=== PATIENT | female | born 1940 | race Caucasian/White ===

== ENCOUNTER 2024-04-13 15:15 | Emergency (ER) | payer OTHER, SELFPAY ==
[2024-04-13 15:47] VITALS: BP 209/88
--- NOTE | 2024-04-13 15:52 | ED.GENMED ---
ED Provider Triage
<Santana Sarmiento PA-C - Last Filed: 04/13/24 15:53>
-
Patient seen by provider in Triage?: Seen in Triage
Attestation: A medical screening examination has been initiated by a qualified medical provider. Based on the assessment performed at this time, it has been determined that an emergent medical condition may exist and the patient has been informed
that further medical evaluation and possible additional diagnostic testing may be needed.
HPI: 83-year-old female with history of Parkinson's presents after a mechanical fall at the gym. Struck her face on the ground, no LOC. Not on blood thinners
GENERAL: Alert , in no apparent distress
EYE: No visual abnormalities.
ENT: Diffuse swelling to the nasal bridge, laceration to the upper lip
NECK: Trachea midline
ENT: No visible abnormalities.
LUNGS: No acute respiratory distress
NEUROLOGICAL: Alert and oriented
SKIN: Skin intact. No visible changes.
MUSCULOSKELETAL: Moving extremities normally
PSYCH: Normal and appropriate interaction.
This is a medical evaluation conducted in person to initiate diagnostic evaluation and provide initial therapeutics. Please see further documentation by the treating clinician.
History of Present Illness
<Snatana Sarmiento PA-C - Last Filed: 04/13/24 15:53>
General
Chief Complaint: Fall
Time Seen by Provider: 04/13/24 17:37
<Hernan Morales DO - Last Filed: 04/13/24 18:04>
General
Source: patient and spouse
Exam Limitations: none
Nursing documentation reviewed up to this point in time: agreed with
History of Present Illness
History of Present Illness:
Agree with HPI by provider in triage Lázaro Sarmiento.
Past History
<DO Anita White Last Filed: 04/13/24 18:04>
Past History
ED Past Medical History: Cancer (breast, skin), GERD, HTN and Other (Parkinson's)
ED Past Surgical History: Other (lumpectomy left breast)
Social History
Tobacco: Non-smoker
Alcohol: None
Drug: None
Personal:
Living: with family
Review of Systems
<Hernan Morales, - Last Filed: 04/13/24 18:04>
Review of Systems
Allergies reviewed?: Yes
All Other Systems: Not applicable
Constitutional: Reports no symptoms
EENT: Reports no symptoms
Respiratory: Reports no symptoms
Cardiac: Reports no symptoms
ABD/GI: Reports no symptoms
: Reports no symptoms
Musculoskeletal: Reports no symptoms
Skin: Reports no symptoms
Neurological: Reports no symptoms
Endocrine: Reports no symptoms
Hematologic/Lymphatic: Reports no symptoms
Psychiatric: Reports no symptoms
Phy Exam
<Hernan Morales, - Last Filed: 04/13/24 18:04>
Physical Exam
Physical Exam:
Upper lip laceration, superficial, does not violate vermilion border. No cervical spine tenderness
Course
<Santana Sarmiento PA-C - Last Filed: 04/13/24 15:53>
Orders/Labs/Results
Orders:
Orders
04/13/24 15:53
CT Facial Bones W/o Iv Contras Urgent
Comment:
Reason For Exam: fall
CT Head W/o Iv Contrast Urgent
Comment:
Reason For Exam: fall
Vital Signs
Initial and Last Documented VS:
Initial Vital Signs
Temp Pulse Resp BP Pulse Ox
98.3 F 73 18 209/88 99
04/13/24 15:47 04/13/24 15:47 04/13/24 15:47 04/13/24 15:47 04/13/24 15:47
Last Documented Vital Signs
Temp Pulse Resp BP Pulse Ox
98.3 F 73 18 99
04/13/24 15:47 04/13/24 15:47 04/13/24 15:47 04/13/24 15:47 04/13/24 15:47
<Hernan Morales, DO - Last Filed: 04/13/24 18:04>
Orders/Labs/Results
Orders:
Orders
04/13/24 15:53
CT Facial Bones W/o Iv Contras Urgent
Comment:
Reason For Exam: fall
CT Head W/o Iv Contrast Urgent
Comment:
Reason For Exam: fall
Vital Signs
Initial and Last Documented VS:
Initial Vital Signs
Temp Pulse Resp BP Pulse Ox
98.3 F 73 18 99
04/13/24 15:47 04/13/24 15:47 04/13/24 15:47 04/13/24 15:47 04/13/24 15:47
Last Documented Vital Signs
Temp Pulse Resp BP Pulse Ox
98.3 F 73 18 99
04/13/24 15:47 04/13/24 15:47 04/13/24 15:47 04/13/24 15:47 04/13/24 15:47
<Hernan Morales, DO - Last Filed: 04/13/24 18:04>
MDM/Problems Addressed
Differential Diagnosis Includes:
Intracranial hemorrhage, facial bone fracture, septal hematoma
MDM/Problems Addressed:
83-year-old female with fall, upper lip laceration, no signs of facial bone fracture or intracranial hemorrhage. No septal hematoma. Patient stable for discharge. No other injuries. Follow-up with primary care return precautions given.
Chronic conditions affecting care: HTN and Neurological disorder (Parkinson's)
<Hernan Morales, DO - Last Filed: 04/13/24 18:04>
*Radiology
Radiology exam reviewed: radiology read reviewed (CT head and facial bones no acute findings)
*Pulse Oximetry
Patient hypoxic: no
*Critical Care Note
Total Time (30-74mins, 75-104mins- exclusive of procedures): Not Applicable
<Hernan Morales DO - Last Filed: 04/13/24 18:04>
Patient Management
Social determinants of health affecting care: Living situation and Strong social support
Escalation/DeEscalation of care consider admission/obs:
Admit not indicated
ED Attending Note
<Santana Sarmiento PA-C - Last Filed: 04/13/24 15:53>
-
Portions of this chart may have been created with voice recognition software.� Occasional wrong word or��sound alike� substitutions may have occurred due to the inherent limitations of voice recognition software.
Discharge Plan
Departure
Patient Disposition: Home (Routine Discharge)
Date of Disposition: 04/13/24
Time of Disposition: 17:49
Patient with high blood pressure during this ER visit?: Yes
Condition: Good
Discharge Problem:
Fall, Laceration of lip, Fracture, tooth
Instructions: Head Injury in Adults (DC), Preventing falls in adults, Fractured Tooth (DC), BLOOD PRESSURE
Activity Restrictions/Additional Instructions:
Follow-up with your dentist and primary care. Return for any concerns. Eat soft foods for 1 to 2 weeks.
Interventions
Interventions:
*Risk Screen - Suicide Last Done: 04/13/24 17:19
*General Assessment Last Done: 04/13/24 17:19
*Neglect/Abuse Screening Last Done: 04/13/24 17:19
*ED COVID-19 Vaccine History Last Done: 04/13/24 15:47
ED-Musculoskeletal Assessment Last Done: 04/13/24 17:19
ED- Neurological Assessment Last Done: 04/13/24 17:19
ED-Skin Assessment Last Done: 04/13/24 17:19
Discharge Date and Time
Print Language: ITALIAN
== END 2024-04-13 18:21 | disposition home or self-care (01) ==
LOC: EMR 15:15
PROVIDERS: EMERGENCY PHYSICIAN Emergency Medicine; FAMILY PHYSICIAN Family Medicine
DX: S02.5XXA Fracture of tooth (traumatic), initial encounter for closed fracture (principal); S01.511A Laceration without foreign body of lip, initial encounter; W19.XXXA Unspecified fall, initial encounter; Y92.39 Other specified sports and athletic area as the place of occurrence of the external cause; G20.A1 Parkinson's disease without dyskinesia, without mention of fluctuations; I10 Essential (primary) hypertension; K21.9 Gastro-esophageal reflux disease without esophagitis; Z85.828 Personal history of other malignant neoplasm of skin; Z85.3 Personal history of malignant neoplasm of breast
CPT/HCPCS: 99284; 70450; 70486